=== PATIENT | male | born 1960 | race Caucasian/White ===

== ENCOUNTER 2025-04-01 13:30 | Outpatient (CLI) | payer BC, SELFPAY ==
--- NOTE | 2025-04-01 | ECHO_ITS ---
Patient Info Name: Josiah Block Age: 65 years : 1960 Gender: Male Ht: 67 in Wt: 166 lbs BSA: 1.90 m2 HR: 68 bpm BP: 138 / 92 mmHg Heart Rhythm: Sinus Rhythm Technical Quality: Good Exam Date: 04/01/2025 2:12 PM Patient Status: O Admit Date: 04/01/2025 Exam Type: CA echo doppler color flow Complete two-dimensional, color flow and Doppler transthoracic echocardiogram is performed. Architect Naval: Felicia Rosales Attending Provider: Isabelle Leary Summary 1. Complete two-dimensional, color flow and Doppler transthoracic echocardiogram is performed. 2. Left ventricular systolic function is normal, estimated at 60-65. 3. The left ventricular diastolic function is abnormal. 4. Left atrial chamber dimension is mildly enlarged. 5. There is mild aortic valve sclerosis. 6. There is mild aortic valve regurgitation. 7. 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 8. There is moderate to severe mitral eccentricvalve regurgitation. Consider AVERY to evaluate the true degree of mitral regurgitation. 9. There is mild tricuspid valve regurgitation. 10. Moderate pulmonary hypertension, estimated pulmonary arterial systolic pressure is 46 mmHg. 11. There is mild pulmonic regurgitation. Left Ventricle Left ventricular chamber dimension is normal. Left ventricular systolic function is normal, estimated at 60-65. There is no increased left ventricular wall thickness. Left ventricular septal wall motion is normal. The left ventricular diastolic function is abnormal. Right Ventricle Right ventricular chamber dimension is normal. Right ventricular systolic function is normal. Left Atria Left atrial chamber dimension is mildly enlarged. Right Atria Right atrial chamber dimension is normal. Aortic Valve The aortic valve is trileaflet. There is mild aortic valve sclerosis. There is no aortic valve stenosis. There is mild aortic valve regurgitation. Pulmonic Valve The pulmonic valve is normal. There is no pulmonic valve stenosis. There is mild pulmonic regurgitation. Mitral Valve The mitral valve has posterior prolapse with thickening. There is no mitral valve stenosis. There is moderate to severe mitral eccentricvalve regurgitation. Consider AVERY to evaluate the true degree of mitral regurgitation. Tricuspid Valve The tricuspid valve leaflets are normal. There is no significant tricuspid valve stenosis. There is mild tricuspid valve regurgitation. Moderate pulmonary hypertension, estimated pulmonary arterial systolic pressure is 46 mmHg. Pericardium/Pleural The pericardium appears normal. There is no pericardial effusion. Inferior Vena Cava Normal inferior vena cava with >50% collapse upon inspiration consistent with normal right atrial pressure, 5 mmHg. Aorta The aortic root size at the sinus of Valsalva is normal. The prox ascending aorta size is normal. Left Ventricular Outflow Tract Name Value Normal LVOT 2D LVOT Diameter 2.0 cm LVOT Doppler LVOT Peak Velocity 130 cm/s LVOT Peak Gradient 7 mmHg LVOT Mean Gradient 3 mmHg LVOT VTI 19 cm LVOT VTI/AV VTI Ratio 0.8 LVOT Stroke Volume 58 ml LVOT CO 3.8 l/min LVOT CI 2.0 l/min/m2 Pulmonic Valve Name Value Normal RVOT Doppler RVOT Peak Velocity 60 cm/s RVOT Peak Gradient 1 mmHg PV Doppler PV Peak Velocity 103 cm/s PV Peak Gradient 4 mmHg Mitral Valve Name Value Normal MV Doppler MV Peak Gradient 15 mmHg MV Mean Gradient 3 mmHg MV Area (Cont Eq VTI) 1.4 cm2 MV Regurgitation Doppler MR Peak Gradient 86 mmHg MV Diastolic Function MV E Peak Velocity 150 cm/s MV A Peak Velocity 43 cm/s MV E/A 3.5 MV Decel Time (PW) 211 ms MV Annular TDI MV E/e' (Septal) 19.8 MV E/e' (Lateral) 39.3 MV E/e' (Average) 29.6 Tricuspid Valve Name Value Normal TV Regurgitation Doppler TR Peak Velocity 321 cm/s TR Peak Gradient 41 mmHg Estimated PAP/RSVP RA Pressure 5 mmHg <=5 PA Systolic Pressure 46 mmHg <36 RV Systolic Pressure 46 mmHg <36 TV Annular TDI TV Lateral Sparkle s' Velocity 11.0 cm/s >=9.5 Aorta Name Value Normal Ascending Aorta Ao Root Diameter (MM) 3.6 cm Ao Root Diam Index (MM) 1.9 cm/m2 Aortic Valve Name Value Normal AV Doppler AV Peak Velocity 132 cm/s AV Peak Gradient 7 mmHg AV Mean Gradient 3 mmHg AV VTI 25 cm AV Area (Cont Eq VTI) 2.4 cm2 >=3.0 AV Area (Cont Eq Jordan) 3.0 cm2 AV DI (Jordan) 0.99 AV Regurgitation 2D LVOT Area 3.0 cm2 Ventricles Name Value Normal LV Dimensions 2D/MM IVS Diastolic Thickness (2D) 1.0 cm 0.6-1.0 LVID Diastole (2D) 5.2 cm 4.2-5.8 LVIW Diastolic Thickness (2D) 1.0 cm 0.6-1.0 LVID Systole (2D) 2.9 cm 2.5-4.0 LVOT Diameter 2.0 cm LV Mass (2D Cubed) 187.07 g 88.00-224.00 LV Mass Index (2D Cubed) 98 g/m2 49-115 Relative Wall Thickness (2D) 0.37 <=0.42 LV Fractional Shortening/Ejection Fraction 2D/MM LV Fractional Shortening (2D) 45 % 25-43 LV EF (2D Teichholz) 76 % LV Diastolic Volume (4C MOD) 135 ml LV EF (4C MOD) 66 % LV Diastolic Volume (2C MOD) 125 ml LV EF (2C MOD) 65 % LV Diastolic Volume (BP MOD) 130 ml 62-150 LV Diastolic Volume Index (BP MOD) 69 ml/m2 34-74 LV Systolic Volume (BP MOD) 46 ml 21-61 LV Systolic Volume Index (BP MOD) 24 ml/m2 11-31 LV EF (BP MOD) 65 % 52-72 LV Diastolic Length (4C) 9.1 cm LV Systolic Length (4C) 7.7 cm LV Stroke Volume (4C MOD) 90 ml Atria Name Value Normal LA Dimensions LA Dimension (MM) 5.2 cm 3.0-4.0 LA Volume (4C A-L) 133 ml LA Volume (BP A-L) 137 ml RA Dimensions RA Systolic Major [place] Length (4C) 5.6 cm 2.1-2.7 RA Area (4C) 19.6 cm2 <=18.0 Report Signatures
== END 2025-04-01 13:31 | disposition home or self-care (01) ==
DX: R01.1 Cardiac murmur, unspecified (principal); I08.3 Combined rheumatic disorders of mitral, aortic and tricuspid valves
CPT/HCPCS: 93306